=== PATIENT | male | born 1985 | race Asian ===

== ENCOUNTER 2022-05-20 10:37 | Emergency (ER) | payer SELFPAY ==
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
--- NOTE | 2022-05-20 13:56 | XRay Report ---
CHEST 2 VIEWS INDICATION / CLINICAL INFORMATION: chest pain. COMPARISON: None available. FINDINGS: SUPPORT DEVICES: None. HEART / MEDIASTINUM: No significant abnormality. LUNGS / PLEURA: No significant pulmonary or pleural abnormality. No pneumothorax. ADDITIONAL FINDINGS: No significant additional findings. IMPRESSION: 1. No acute findings. Signer Name: Alexandr Huynh MD Signed: 05/20/2022 1:52 PM Workstation Name: [email or web address]
[2022-05-20 15:47] VITALS: BP 132/80
== END 2022-05-20 15:14 | disposition home or self-care (01) ==
LOC: ED 10:37
DX: R07.89 Other chest pain (principal); Z79.899 Other long term (current) drug therapy
CPT/HCPCS: 71046; 93005; 99283